=== PATIENT | female | born 1955 | race African-American/Black ===

== ENCOUNTER 2016-11-03 09:12 | Emergency (ER) | payer MEDICAID ==
[~2016-11-03] VITALS: Ht 167.6 cm; Wt 68.0 kg
[~2016-11-03 09:12] MED LIST: AZITHROMYCIN250 MG ORAL; IBUPROFEN600 MG ORAL; NKM; NORCO 5-325 TA1 EACH ORAL
[2016-11-03 09:16] VITALS: BP 101/70
[2016-11-03] MEDS ORDERED: Norco 5mg/325mg tab ORAL ONE (09:30)
[2016-11-03] MEDS ORDERED: Ketorolac 60mg Inj IM ONE (09:30)
--- NOTE | 2016-11-03 09:30 | Emergency Room Report ---
History of Present Illness General Chief Complaint: Upper Extremity Injury Source: Patient, EMS Present Illness HPI Patient was coming out of the shower in the gym Patient slipped phone to the right side complains of pain to the right elbow and the right hip area Denies any lapse of consciousness denies any chest pain or shortness of breath Pain is 8/10 localized to the right elbow Patient also has discomfort to the right buttock area Patient has increased pain with movement of the arm Denies any neck pain or back pain Allergies: Coded Allergies: PENICILLINS (Verified Allergy, Severe, Rash, 01/20/13) Patient History Past Medical History: see triage record Pertinent Family History: none Reviewed Nursing Documentation: PMH: Agreed, PSxH: Agreed Nursing Documentation-PMH Past Medical History: No Stated History Review of Systems All Other Systems: negative except mentioned in HPI Physical Exam Vital Signs Date Time Temp Pulse Resp B/P (MAP) Pulse Ox O2 Delivery O2 Flow Rate FiO2 11/03/16 09:07 97.9 70 15 102/65 96 Room Air Sp02 EP Interpretation: reviewed, normal General Appearance: mild distress - in acute pain Head: normocephalic, atraumatic Eyes: bilateral eye PERRL, bilateral eye EOMI ENT: hearing grossly normal, normal pharynx Neck: full range of motion, supple, thyroid normal Respiratory: lungs clear Cardiovascular #1: regular rate, rhythm, no edema Gastrointestinal: non tender, soft Musculoskeletal: swelling - To the lateral elbow patient is able to flex and extend at the elbow however, no obvious expanding hematoma, , other - Tender on palpation of the right hip area as well Neurologic: alert, oriented x3, responsive Skin: other - as above Procedures Splinting Splinting : Consent: Verbal Location: right arm Pre-Made Type: shoulder sling Splint: Right shoulder sling Pre-Proc Neuro Vasc Exam: normal Post-Proc Neuro Vasc Exam: normal Patient Tolerated: Well Complications: None Medical Decision Making Diagnostic Impression: Primary Impression: Contusion Additional Impressions: Elbow contusion Hand contusion Contusion, hip ER Course Given the patient's presentation multiple imaging studies initiated Reports as noted in the x-ray section no obvious acute fractures were noted Radiology had a note regarding the patient's first distal metatarsal however clinically does not correlate Patient continues to do well at this time stable for close outpatient followup Other X-Ray Diagnostic Results Other X-Ray Diagnostic Results #1: X-Ray ordered: right hand # of Views/Limited Vs Complete: 3 View Indication: Pain EP Interpretation: Yes Interpretation: no dislocation, no soft tissue swelling, no fractures, other - Question regarding distal fifth metatarsal, possible tuft fracture Impression: No acute disease Electronically Signed by: Paige Brooks DO Other X-Ray Diagnostic Results #2: X-Ray ordered: right elbow # of Views/Limited Vs Complete: 3 View Indication: Pain EP Interpretation: Yes Interpretation: no dislocation, no soft tissue swelling, no fractures Impression: No acute disease Electronically Signed by: Paige Brooks DO Other X-Ray Diagnostic Results #3: X-Ray ordered: right hip # of Views/Limited Vs Complete: 3 View Indication: Pain EP Interpretation: Yes Interpretation: no dislocation, no soft tissue swelling, no fractures Impression: No acute disease Electronically Signed by: Paige Brooks DO Last Vital Signs Date Time Temp Pulse Resp B/P (MAP) Pulse Ox O2 Delivery O2 Flow Rate FiO2 11/03/16 09:16 98.3 61 10 101/70 100 Room Air Status: improved Disposition: HOME, SELF-CARE Condition: Improved Scripts Methocarbamol* (ROBAXIN-750*) 750 Mg Tablet 750 MG PO TID, #21 TAB 0 Refills Prov: PAIGE BROOKS D.O. 11/03/16 Ibuprofen* (MOTRIN*) 600 Mg Tablet 600 MG ORAL Q8H Y for For Pain, #20 TAB 0 Refills Prov: PAIGE BROOKS D.O. 11/03/16 Additional Instructions: Patient is provided with the discharge instructions notified to follow up with primary doctor in the next 2-3 days otherwise return to the er with any worsening symptoms. Please note that this report is being documented using [employer] technology. This can lead to erroneous entry secondary to incorrect interpretation by the dictating instrument. PAIGE BROOKS D.O. Nov 03, 2016 09:30
[2016-11-03 10:00] VITALS: BP 116/74
[2016-11-03] MEDS ORDERED: IBUPROFEN600 MG ORAL (10:55)
[2016-11-03] MEDS ORDERED: ROBAXIN-750750 MG PO (10:55)
[2016-11-03 11:13] VITALS: BP 116/74
--- NOTE | 2016-11-03 11:50 | Diagnostic Imaging Report ---
Indication: Trauma with pain Technique: XRAY HAND MIN 3V RIGHT Comparison: None. Findings: Examination demonstrates slight irregularity of the terminal tuft of the fifth distal phalanx. The remainder the bones are unremarkable. There is slight narrowing of the first metacarpal phalangeal joint. There is a periarticular calcification adjacent to the third distal interphalangeal joint. Impression: A biliary of the fifth distal phalangeal terminal tuft. It is uncertain whether this represents is fracture. Small periarticular calcification adjacent to the third distal interphalangeal joint. Slight narrowing of the first metacarpal phalangeal joint, probably degenerative. Otherwise negative.
--- NOTE | 2016-11-03 11:51 | Diagnostic Imaging Report ---
Indication: Trauma with pain Technique: XRAY ELBOW MIN 3 VIEWS RIGHT Comparison: None. Findings: The osseous structures are intact. There is no fracture or destruction. The visualized joints are normal. The soft tissues are unremarkable. Impression: Negative examination.
--- NOTE | 2016-11-03 11:51 | Diagnostic Imaging Report ---
Indication: Trauma with pain Technique: XRAY HIP 2V RIGHT Comparison: None. Findings: Prescribed bone normal Impression: Normal. Report
[2016-11-04] MEDS ORDERED: NKM (11:58)
== END 2016-11-03 11:43 | disposition home or self-care (01) ==
LOC: EDBD 09:12 → EMR 11:35 → EDUNIT# 11:35 → EMR 11:43
DX: S50.01XA Contusion of right elbow, initial encounter (principal); S60.229A Contusion of unspecified hand, initial encounter; S70.01XA Contusion of right hip, initial encounter; W18.2XXA Fall in (into) shower or empty bathtub, initial encounter; Y93.9 Activity, unspecified; Y92.39 Other specified sports and athletic area as the place of occurrence of the external cause; Z88.0 Allergy status to penicillin
CPT/HCPCS: 96372; 99284

== ENCOUNTER 2016-11-04 11:50 | Emergency (ER) | payer MEDICAID ==
[~2016-11-04] VITALS: Ht 162.6 cm; Wt 68.0 kg
[~2016-11-04 11:50] MED LIST changes: +ROBAXIN-750750 MG PO
[2016-11-04] MEDS ORDERED: NKM (11:58)
[2016-11-04 12:39] VITALS: BP 115/72
--- NOTE | 2016-11-04 13:06 | Emergency Room Report ---
History of Present Illness General Chief Complaint: Pain Source: Patient Present Illness HPI 61-year-old female, fell yesterday, with the right elbow and hand pain. Patient came to the emergency room yesterday, had x-rays performed which were negative. Patient was discharged with a sling and prescription for Motrin. Patient now back in the ER complaining of persistent pain, wanting another kind of sling, and states that she did not fill her Motrin prescription and is in pain. Patient denies any new trauma, but complaining of elbow pain worse with movement. No numbness or tingling of arm or hand Allergies: Coded Allergies: PENICILLINS (Verified Allergy, Severe, Rash, 01/20/13) Patient History Past Medical History: see triage record Past Surgical History: none Pertinent Family History: none Last Menstrual Period: Post Reviewed Nursing Documentation: PMH: Agreed, PSxH: Agreed Nursing Documentation-PMH Past Medical History: No History, Except For Review of Systems All Other Systems: negative except mentioned in HPI Physical Exam Vital Signs Date Time Temp Pulse Resp B/P (MAP) Pulse Ox O2 Delivery O2 Flow Rate FiO2 11/04/16 11:55 98.2 70 20 115/72 98 Room Air Sp02 EP Interpretation: reviewed, normal General Appearance: normal inspection, well appearing, no apparent distress, alert, GCS 15, non-toxic Head: normocephalic, atraumatic Eyes: bilateral eye normal inspection, bilateral eye PERRL, bilateral eye EOMI ENT: normal ENT inspection, normal pharynx, normal voice, moist mucus membranes Neck: normal inspection, full range of motion, supple Respiratory: normal inspection, lungs clear, normal breath sounds, no respiratory distress, no retraction, no wheezing, speaking full sentences, chest symmetrical Cardiovascular #1: normal inspection, regular rate, rhythm, no edema, normal capillary refill Cardiovascular #2: 2+ radial (R), 2+ radial (L) Gastrointestinal: normal inspection, non tender, soft, non-distended, no guarding Musculoskeletal: other - Right elbow tender to palpation, mild swelling, no warmth, full range of motion otherwise although moves joint slowly, full range of motion wrist and hand. Patient with sling Neurologic: normal inspection, alert, oriented x3, responsive, motor strength/ tone normal, sensory intact, normal gait, speech normal Psychiatric: normal inspection, judgement/insight normal, memory normal Skin: normal inspection, normal color, no rash, warm/dry, well hydrated, normal turgor Medical Decision Making Diagnostic Impression: Primary Impression: Elbow pain, right ER Course 61 yo F with R elbow pain DDX: Elbow contusion Plan: X-rays were performed yesterday, no significant injury, no fracture or dislocation seen. Will give Motrin for pain ER course: Patient has remained stable in the ED Disposition: Patient is to be discharged to home. Patient is instructed to continue use of sling, to followup with her primary care DrAmisha within 5 days for recheck, and to fill her prescription for Motrin. Strict return precautions discussed with patient such as fever, chills, worsening/severe pain, nausea, vomiting, which may indicate severe illness. Patient verbalizes understanding and agrees with plan. Please note that this Emergency Department Report was dictated using [employer] technology software, occasionally this can lead to erroneous entry secondary to interpretation by the dictation equipment Last Vital Signs Date Time Temp Pulse Resp B/P (MAP) Pulse Ox O2 Delivery O2 Flow Rate FiO2 11/04/16 12:39 98.2 20 115/72 98 Room Air 11/04/16 11:55 70 Disposition: HOME, SELF-CARE Condition: Stable Referrals: [facility],REFERR (PCP) NOT CHOSEN [facility]/MD,REFERRING Additional Instructions: Patient was seen for contusion for her hand and R elbow. XRAYS performed yesterday were normal. Patient is instructed to continue with a sling. Patient is also instructed to fill her prescription for pain medication Please followup with your doctor within 5 days. Sanjuanita Li M.D. Nov 04, 2016 13:06
== END 2016-11-04 12:47 | disposition home or self-care (01) ==
LOC: EMR 12:10
DX: M25.521 Pain in right elbow (principal); M25.541 Pain in joints of right hand; Z88.0 Allergy status to penicillin
CPT/HCPCS: 99283